=== PATIENT | female | born 1985 | race African-American/Black ===

== ENCOUNTER 2018-03-29 23:41 | Emergency (ER) | payer MEDICAID ==
[~2018-03-29] VITALS: Ht 165.1 cm; Wt 59.0 kg
[2018-03-30] MEDS ORDERED: DEXAMETHASONE 10 MG/ML VIAL IM ONE (07:15)
[2018-03-30] MEDS ORDERED: KETOROLAC 60MG/2ML VIAL IM ONE (07:15)
[2018-03-30 07:40] VITALS: BP 115/58
== END 2018-03-30 08:18 | disposition home or self-care (01) ==
LOC: ER 23:41
DX: L03.012 Cellulitis of left finger (principal); J45.909 Unspecified asthma, uncomplicated; Z76.0 Encounter for issue of repeat prescription; M54.5 Low back pain; M54.30 Sciatica, unspecified side
CPT/HCPCS: 96372; 99284; J1100; J1885